=== PATIENT | female | born 1955 | race African-American/Black ===

== ENCOUNTER 2016-07-04 13:19 | Emergency (ER) | payer BC | END 2016-07-04 13:40 | disposition home or self-care (01) | LOC: ER 13:19 | DX: L30.9 Dermatitis, unspecified (principal); E11.9 Type 2 diabetes mellitus without complications | CPT/HCPCS: 96372; 99282; J1200 ==

== ENCOUNTER 2016-07-14 10:53 | Emergency (ER) | payer BC | END 2016-07-14 11:31 | disposition home or self-care (01) | LOC: ER 10:53 | DX: L73.9 Follicular disorder, unspecified (principal); E11.9 Type 2 diabetes mellitus without complications | CPT/HCPCS: 99283; A9270-GY ==

== ENCOUNTER 2016-09-27 11:39 | Emergency (ER) | payer BC | END 2016-09-27 13:30 | disposition home or self-care (01) | LOC: ER 11:39 | DX: H61.22 Impacted cerumen, left ear (principal); E11.9 Type 2 diabetes mellitus without complications; Z86.19 Personal history of other infectious and parasitic diseases | CPT/HCPCS: 99282 ==